=== PATIENT | female | born 1950 | race Caucasian/White ===

== ENCOUNTER 2021-02-08 17:28 | Observation (INO) ==
[2021-02-08] MEDS ORDERED: *HR* LORazepam 2 MG/ML VIAL IVP ONE (17:43)
[2021-02-08] MEDS ORDERED: Isovue-370 500 ML BOTTLE IVP ONE (17:43)
[2021-02-08] MEDS ORDERED: 0.9 % Sodium Chloride 1,000 ML IV ONE (17:44)
[2021-02-08 18:07] LABS: Basophils % 0.4 %; Eosinophils # 0.1 K/mcL (0.0-0.6); Eosinophils % 1.3 %; Hematocrit 42.3 % (35.3-44.9); Hemoglobin 14.4 g/dL (11.5-15.4); Immature Granulocytes % 0.2 % (0-4); Lymphocytes # 1.9 K/mcL (0.6-4.6); Lymphocytes % 22.7 %; Mean Platelet Volume 9.5 fL (9.4-12.4); Monocytes # 0.5 K/mcL (0.0-1.3); Monocytes % 5.8 %; Neutrophils # 5.8 K/mcL (1.6-8.9); Platelet Count 241 K/mcL (140-400); Red Blood Count 4.65 M/mcL (3.82-4.97); Red Cell Distribution Width 12.7 % (11.5-14.5); Segmented Neutrophils % 69.6 %; White Blood Count 8.4 K/mcL (4.3-11.1)
[2021-02-08 18:27] LABS: Alanine Aminotransferase 23 Units/L (7-52); Albumin 4.2 g/dL (3.5-5.7); Albumin/Globulin Ratio 1.7 (1.1-2.2); Alkaline Phosphatase 101 Units/L (34-104); Aspartate Amino Transferase 18 Units/L (13-39); BUN/Creatinine Ratio 16 (6-26); Bilirubin,Total 0.5 mg/dL (0.3-1.0); Blood Urea Nitrogen 14 mg/dL (8-23); Calcium 8.8 mg/dL (8.6-10.3); Carbon Dioxide 26 mEq/L (23-29); Chloride 102 mEq/L (98-107); Globulin 2.5 g/dL (2.4-3.5); Glucose 168 mg/dL (70-105); Magnesium 1.9 mg/dL (1.6-2.6); Osmolality,Calculated 292 (280-300); Potassium 3.8 mEq/L (3.5-5.1); Sodium 139 mEq/L (136-145); Total Protein 6.7 g/dL (6.4-8.9); Troponin I < 0.03 ng/mL (< 0.04); eGFR For African Americans > 60 (> 60); eGFR For Non-African Americans > 60 (> 60)
[2021-02-08 18:41] LABS: Thyroid Stimulating Hormone 2.928 mcIU/mL (0.340-5.600)
[2021-02-08 19:34] LABS: Bilirubin,Urine Negative (Negative); Blood,Urine Negative (Negative); Clarity,Urine Clear (Clear); Color,Urine Yellow (Yellow); Glucose,Urine (UA) 100 mg/dL (Normal); Ketones,Urine Negative (Negative); Leukocyte Esterase,Urine Negative (Negative); Nitrite,Urine Negative (Negative); Protein,Urine Negative (Neg-Trace); Urobilinogen,Urine Normal (Normal)
[2021-02-08 19:40] LABS: Bacteria,Urine Few per hpf (None-Few); Mucus,Urine Few per lpf (None-Few); RBC,Urine 0-3 per hpf (0-3); Squamous Epithelial Cell,Urine Few per hpf (None-Few); WBC,Urine 0-3 per hpf (0-3)
[2021-02-08] MEDS ORDERED: Naloxone 0.4 MG/ML INJ IVP PRN (22:01)
[2021-02-08] MEDS ORDERED: Ibuprofen 400 MG TABLET PO PRN (22:01)
[2021-02-08] MEDS ORDERED: Melatonin 3 MG TABLET PO PRN (22:01)
[2021-02-08] MEDS ORDERED: Ondansetron ODT 4 MG TAB.RAPDIS SL PRN (22:01)
[2021-02-08] MEDS ORDERED: Gadolinium Contrast Agent (WT Based) IV PRN (22:07)
[2021-02-08 23:29] LABS: Basophils % 0.3 %; Eosinophils # 0.1 K/mcL (0.0-0.6); Eosinophils % 1.2 %; Hematocrit 39.3 % (35.3-44.9); Hemoglobin 13.4 g/dL (11.5-15.4); Immature Granulocytes % 0.2 % (0-4); Lymphocytes # 2.5 K/mcL (0.6-4.6); Lymphocytes % 27.5 %; Mean Corpuscular HGB Conc 34.1 g/dL (31.6-35.5); Mean Corpuscular Hemoglobin 31.5 pg (28.0-33.3); Mean Corpuscular Volume 92.3 fL (83.0-100.0); Mean Platelet Volume 9.5 fL (9.4-12.4); Monocytes # 0.5 K/mcL (0.0-1.3); Monocytes % 5.2 %; Neutrophils # 5.9 K/mcL (1.6-8.9); Platelet Count 237 K/mcL (140-400); Red Blood Count 4.26 M/mcL (3.82-4.97); Red Cell Distribution Width 12.7 % (11.5-14.5); Segmented Neutrophils % 65.6 %; White Blood Count 9.1 K/mcL (4.3-11.1)
[2021-02-09 03:19] LABS: BUN/Creatinine Ratio 11 (6-26); Blood Urea Nitrogen 10 mg/dL (8-23); Calcium 8.5 mg/dL (8.6-10.3); Carbon Dioxide 29 mEq/L (23-29); Chloride 104 mEq/L (98-107); Glucose 120 mg/dL (70-105); Magnesium 1.9 mg/dL (1.6-2.6); Osmolality,Calculated 290 (280-300); Potassium 3.5 mEq/L (3.5-5.1); Sodium 140 mEq/L (136-145); eGFR For African Americans > 60 (> 60); eGFR For Non-African Americans > 60 (> 60)
[2021-02-09] MEDS ORDERED: GADOBUTROL 30 MMOL/30 ML VIAL IVP ONE (10:38)
[2021-02-09] MEDS: Acetaminophen/Aspirin/Caffeine TABLET PO SCH (20:19)
[2021-02-10 07:34] VITALS: BP 133/76; PULSE 72; TEMP 97.6; O2SAT 96
[2021-02-10] MEDS: Acetaminophen/Aspirin/Caffeine TABLET PO SCH (07:45)
[2021-02-10] MEDS ORDERED: Cholecalciferol (D-3) 1,000 UNIT (25MCG) TABLET PO SCH (09:00)
[2021-02-10] MEDS ORDERED: NON-FORMULARY MEDICATION 1 EACH EACH (Omega-3/Dha/Epa/Fish Oil [Fish Oil 1,000 Mg Softgel] PO SCH (09:00)
[2021-02-10] MEDS ORDERED: *HR* Metformin 500 MG TABLET PO SCH (09:00)
[2021-02-10] MEDS ORDERED: BuPROPion XL (24 HR) 150 MG TABLET PO SCH (09:00)
[2021-02-10] MEDS ORDERED: Loratadine 10 MG TABLET PO SCH (09:00)
[2021-02-10] MEDS ORDERED: FLU Vac QV 21-22 (6Month+)/PF 0.5 ML SYRINGE IM ONE (11:43)
== END 2021-02-10 12:18 | disposition home or self-care (01) ==
LOC: 3ANU 17:28 → EMEROOARM 17:28 → SUATTDRO 21:13 → 3ANU 22:08
PROVIDERS: ADMIT Internal Medicine; ATTEND Nurse Practitioner